=== PATIENT | female | born 1940 | race Caucasian/White ===

== ENCOUNTER 2016-06-01 11:27 | Observation (INO) | payer MEDICARE ==
[~2016-06-01] VITALS: Ht 162.6 cm; Wt 54.9 kg
[~2016-06-01 11:27] MED LIST: ALBUTEROL HFA60 DOSE IN; ALBUTEROL SUL0.083 % IN; ALPRAZOLAM0.5 MG; ATORVASTATIN CA20 MG PO; CEFTIN500 MG PO; GLUCOPHAGE500 MG PO; LEVOFLOXACIN500 MG PO; LISINOPRIL10 MG PO; METFORMIN HCL500 MG PO; MIRTAZAPINE15 MG PO; O2; OXAYDO5 MG; PREDNISONE20 MG PO; SPIRIVA18 MCG INH
--- NOTE | 2016-06-01 12:48 | DIAGNOSTIC IMAGING REPORT ---
PROCEDURE: XR CHEST 1 VIEW INDICATION: COPD TECHNIQUE: Portable AP view 11:59 a.m. COMPARISON: Chest 05/26/2016 and 04/28/2016 FINDINGS: Pulmonary hyperexpansion with basilar parenchymal scarring. Lungs are otherwise clear. Heart and mediastinum are normal. Thorax is normal. IMPRESSION: 1. Chronic obstructive pulmonary disease. 2. Otherwise negative chest.
--- NOTE | 2016-06-01 14:17 | ED ORDER SUMMARY ---
..... Patient: HONORIO ALBRIGHT OrderSheet [facility] VisitID: [id number] [place] [address] 75y, F Registration Date/Time: 06/01/2016 ORDER SHEET Weight: 56.2 kg (stated) Allergies: Codeine, PCN, Sulfa Drugs GENERAL ORDERS: Chest 1V Urgent (11:44 06/01/2016 Carrol Jaeger) (Ack 11:47 Esthela ER Tech1) (12:50 IJcasimiro ER Tech1) Oxygen (titrate to sats > 90%) (NC) (11:44 06/01/2016 Carrol Jaeger) (11:47 LWhalen R.N.) (Ack 11:47 Esthela ER Tech1) Commercial Escrow Officer (Continuous) (Respiratory Distress) (11:45 06/01/2016 Carrol Jaeger) (11:47 LWhalen R.N.) (Ack 11:47 Esthela ER Tech1) RSV Rapid Screen (Nasal Pharyngeal) (mucus) Urgent (11:45 06/01/2016 Carorl Jaeger) (Ack 11:47 Esthela ER Tech1) (12:05 LWhalen R.N.) Rapid Influenza Screen (Nasal Pharyngeal) (mucus) Urgent (11:45 06/01/2016 Carrol Jaeger) (Ack 11:47 Esthela ER Tech1) (12:05 LWhalen R.N.) CBC w Diff Urgent (11:45 06/01/2016 Carrol Jaeger) (Ack 11:47 Esthela ER Tech1) (11:57 Elizabeth R.N.) CMP Urgent (11:45 06/01/2016 Carrol Jaeger) (Ack 11:47 Esthela ER Tech1) (11:57 Elizabeth R.N.) UA-Culture if indicated Urgent (11:45 06/01/2016 Carrol Jaeger) (Ack 11:47 Esthela ER Tech1) Lactate, Serum Urgent (11:45 06/01/2016 Carrol Jaeger) (Ack 11:47 Esthela ER Tech1) (12:05 LWhalen R.N.) PCT (Procalcitonin) Urgent (11:45 06/01/2016 Carrol Jaeger) (Ack 11:47 IJurca ER Tech1) Pulse oximeter (11:45 06/01/2016 Carrol Jaeger) (11:47 LWmilagros R.N.) (Ack 11:47 IJurca ER Tech1) MEDICATION ORDERS: DuoNeb Neb Tx 1 unit dose (NOW) (11:46 06/01/2016 Carrol Jaeger) (12:11 JZiglar) Albuterol Neb Tx 3 unit doses (now over 1 hour) (12:32 06/01/2016 Carrol Jaeger) (12:46 JZiglar) Albuterol Neb Tx 2 unit doses (NOW) (13:30 06/01/2016 Carrol Jaeger) (13:50 JZiglar) IV FLUIDS: IV Saline Lock (11:45 06/01/2016 Carrol Jaeger) (Ack 11:57 Elizabeth Mustafa) (11:57 Elizabeth Mustafa) Solu-MEDROL IV 125 mg (NOW) (11:45 06/01/2016 Carrol Jaeger) (12:02 LWmilagros R.N.) Magnesium Sulfate IV 2 gm/50mL (given over 15 minutes) (14:16 06/01/2016 Carrol Jaeger) (14:22 LWmilagros R.N.) ORDER SHEET NOTES: [Electronically signed by Aidee Ramos R.N. (17:04 06/01/2016)] [Electronically signed by Kody Barth Dr. (23:35 06/06/2016)] [Electronically locked/signed by Aidee Ramos R.N. (17:04 06/01/2016)]
--- NOTE | 2016-06-01 14:17 | ED NURSING NOTES ---
Clinical Report - Nurses [facility] [address] [place] [address] 06/01/2016 11:28 [id number] Triage time 11:39 Jun 01 2016. Acuity: LEVEL 3. Chief Complaint: SHORTNESS OF BREATH, DIFFICULTY BREATHING and WHEEZING. CHRISS COMA SCORE: [place] Coma Scale: 15- eyes open spontaneously (4); best verbal response- oriented x 4 (5); best motor response- obeys commands (6). --11:45 Aidee Ramos R.N. 11:39 06/01/16. BP: 199/76. HR: 120. RR: 26. O2 saturation: 91%. Temp: 98.0 F. --11:45 Aidee Ramos R.N. 11:39 06/01/16. Pain level now 0/10. --17:03 Aidee Ramos R.N. Weight: 56.2 kg stated. Height/Length: 64 inches Per Patient. BMI: 21.3. --11:44 Aidee Ramos R.N. Medications Albuterol Sulfate Inhalation. Alprazolam 0.5mg.-1 3 times daily. FLUoxetine HCl Oral 20 mg, daily. Lisinopril 40mg 1 daily. MetFORMIN HCl Oral 500 mg, 2x a day. Mirtazapine Oral 30 mg, at bedtime. --11:40 Aidee Ramos R.N. O2 at 3L/min. OxyCODONE HCl Oral, as needed. PredniSONE Oral 40 mg, daily. Spiriva HandiHaler Inhalation. --11:40 Aidee Ramos R.N. Allergies Codeine. PCN. Sulfa Drugs. --11:40 Aidee Ramos R.N. History Arrived by private vehicle. Historian: patient and family. Accompanied by family. Primary physician (). ( This am breathing has been worse with decrease in sat's and anxiety.). She has had a cough and wheezing. Treatment FINANCIAL REPORTING ANALYST: (inhaler and ativan). PAST MEDICAL HX: Chronic obstructive pulmonary disease. She is on home oxygen. Immunizations: up-to-date. SOCIAL HX: Smoker- current status unknown. No alcohol use or drug use. No infectious disease exposure. SELF HARM ASSESSMENT: A self harm assessment was performed. The patient answered "no" to the question "Have you recently felt down, depressed, or hopeless?" and "Do you have thoughts of harming or killing yourself?". FALL RISK ASSESSMENT: Fall risk assessment completed. No fall risk identified. NUTRITIONAL RISK ASSESSMENT: The nutritional risk assessment revealed no deficiencies. FUNCTIONAL ASSESSMENT: Functional assessment: no impairments noted. LEARNING NEEDS ASSESSMENT: The learning needs assessment revealed no barriers. ABUSE ASSESSMENT: Abuse assessment: (yes). SKIN INTEGRITY ASSESSMENT: Skin integrity risk assessment completed. No skin integrity risk identified. --11:45 Aidee Ramos R.N. PROBLEMS: Emphysema. Anxiety Reaction. COPD - Chronic Obstructive Pulmonary Disease. Abscess. Abdominal Pain. Diarrhea. Dizziness. Hypertension. Tetanus Status. Immunizations. Subclavian steal syndrome. Diabetes Mellitus. --11:41 Aidee Ramos R.N. Constipation [Resolved]. --11:41 Aidee Ramos R.N. ADDITIONAL SURGERIES: Cholecystectomy. Hysterectomy. Tonsillectomy. --11:41 Aidee Ramos R.N. Interventions ID and allergy band on patient. --11:45 Aidee Ramos R.N. PHYSICAL ASSESSMENT To room via wheelchair. GENERAL / NEURO / PSYCH: Alert. Oriented X 4. Appears anxious and in distress. HEENT: Mucous membranes are pink. RESPIRATORY: Severe respiratory distress. The patient can speak a few words at a time. Accessory muscle use. Chest wall tenderness. Wheezing present. Rhonchi present. CVS: Normal sinus rhythm noted. Capillary refill less than 2 seconds. GI / : Abdomen soft and nontender. Bowel sounds within normal limits. ( Last BM last night). SKIN: Skin is warm and dry. Normal skin turgor. --11:45 Aidee Ramos R.N. NURSING PROGRESS NOTES The initial plan of care for this patient includes an assessment with efforts to address the patient's anxiety; appropriate ambient lighting and comfortable environmental temperature; impairment of the respiratory system. Oxygen administered by nasal cannula at 3 liters. telemetry monitor, pulse oximeter and NIBP monitor placed on patient. Patient gowned. Head of bed elevated 60 degrees. Reassurance given. Call light placed in reach. Side rails up x 1. Bed placed in lowest position. Brakes of bed on. --11:46 Aidee Ramos R.N. 11:57 06/01/2016 Site #1 started via IV in the left hand with an 22g angiocath, with aseptic technique and good blood return; one attempt. Blood drawn: rainbow set. Labeled in the presence of the patient and sent to the lab. Saline lock flushed with 10 mL saline. --11:57 Elaine Anderson R.N. 12:02 06/01/2016 SOLU-MEDROL (MethylPREDNISolone Sodium Succ) IVP 125 mg given over 2 minute(s) via site #1. Allergies verified and confirmed 5 rights. IV patency established. IV site checked: no pain, redness, or swelling. IV flushed thoroughly pre- and post-medication administration. --12:02 Aidee Ramos R.N. Patient ID band checked for patient name and birthdate: patient confirmed. RSV nasal swab obtained by RN via nasal swab. Patient ID band checked for patient name and birthdate: patient confirmed. Flu swab obtained by RN via nasal swab. Labeled in the presence of the patient. --12:09 Aidee Ramos R.N. 12:11 06/01/2016 Duoneb (Ipratropium-Albuterol) Neb TX Nebulizer 1 unit dose given. Given by the respiratory therapist. Allergies verified and confirmed 5 rights. Jose Eduardo Sorto --12:11 Jose Eduardo Sorto ( Pt assisted to commode to urinate. Urine will be collected for analysis). --12:36 Yousif Maria 12:46 06/01/2016 Albuterol Neb TX Nebulizer 2 unit dose given. Given by the respiratory therapist. Allergies verified and confirmed 5 rights. Jose Eduardo Sorto --12:46 Jose Eduardo Sorto 12:40. Checked patient name and birthdate: patient confirmed. Patient verbalized understanding urine collected with return of yellow-colored clear urine; odor is normal; sample sent to lab for urinalysis. Specimen labeled in the presence of the patient. --12:58 Yousif Maria 13:50 06/01/2016 Albuterol Neb TX Nebulizer 2 unit dose given. Given by the respiratory therapist. Allergies verified and confirmed 5 rights. Jose Eduardo Sorto --13:50 Jose Eduardo Sorto 14:02 06/01/16. BP: 138/56. HR: 109. RR: 30. O2 saturation: 96%. Additional comments: pt receiving neb tx at this time. --14:02 Terri Nava R.N. 14:22 06/01/2016 Magnesium Sulfate (Magnesium Sulfate in D5W) IVP 2 gm given over 15 minute(s) via site #1. Allergies verified and confirmed 5 rights. IV patency established. IV site checked: no pain, redness, or swelling. IV flushed thoroughly pre- and post-medication administration. --14:22 Aidee Ramos R.N. 14:33 06/01/16. BP: 94/62. HR: 107. RR: 26. O2 saturation: 92%. --14:34 Aidee Ramos R.N. 14:38 06/01/16. BP: 96/55. HR: 104. RR: 25. O2 saturation: 91%. --14:38 Aidee Ramos R.N. 14:39 06/01/16. BP: 105/39. HR: 102. RR: 18. O2 saturation: 91%. --14:39 Aidee Ramos R.N. 14:42 06/01/16. BP: 92/37. HR: 102. RR: 30. O2 saturation: 91%. --14:42 Aidee Ramos R.N. 14:47 06/01/16. BP: 106/52. HR: 100. RR: 27. O2 saturation: 91%. --14:47 Aidee Ramos R.N. 15:25 06/01/16. The patient is resting quietly. Overall patient status is improved- she states feels better (awake, alert,). RESPIRATORY: No respiratory distress. SKIN: Skin is warm and dry. --15:25 Elaine Anderson R.N. 15:24 06/01/16. BP: 125/55. HR: 101. RR: 30. O2 saturation: 93% on nasal cannula. --15:25 Elaine Anderson R.N. 16:18 06/01/16. BP: 127/51. HR: 108. RR: 18. O2 saturation: 92%. Temp: 98.2 F. Pain level now 0/10. --16:20 Aidee Ramos R.N. ( Patient ate meal no complaints.). --16:20 Aidee Ramos R.N. ( Report called to RN in ACU will get a return call when able to receive report.). --16:21 Aidee Ramos R.N. DISPOSITION / DISCHARGE Admitted to Acute Care. ( Report given to AC RN. Transportation called.). --16:39 Aidee Ramos R.N. 16:18 06/01/16. BP: 127/51. HR: 108. RR: 18. O2 saturation: 92%. Temp: 98.2 F. Pain level now 0/10. --16:39 Aidee Ramos R.N. Departure time: 17:Jun 01 2016. --17:03 Aidee Ramos R.N. Locked/Released at 06/01/2016 17:04 by Aidee Ramos R.N.
--- NOTE | 2016-06-01 14:17 | ED CLINICAL REPORT ---
Clinical Report - Physicians/Mid Levels [facility] [address] [place] [address] 06/01/2016 11:28 Patient: HONORIO ALBRIGHT Arrived- By private vehicle. Historian- patient. HISTORY OF PRESENT ILLNESS Chief Complaint: DYSPNEA and WHEEZING. This started past few days and is still present (worsening). It was gradual in onset and has been constant but is not gone now. The dyspnea is described as moderate and is worsened by exertion and is improved by rest. The patient has had sputum production, a cough, wheezing and anxiety. No foot swelling. Similar symptoms previously: Many times. Recent medical care: Not recently seen/assessed. REVIEW OF SYSTEMS No abdominal pain, black stools or bloody stools. All systems otherwise negative, except as recorded above. PAST HISTORY See nurses notes. Denies the following risk factors for DVT/PE - history of DVT and pulmonary embolism, recent surgery, recent MD and congestive heart failure. Denies the following risk factors for DVT/PE - cancer, clotting disorder, estrogens, obesity and immobility. Denies the following risk factors for DVT/PE - advanced in age and vena cava filter. Medications: O2 at 3L/min. OxyCODONE HCl Oral, as needed. PredniSONE Oral 40 mg, daily. Spiriva HandiHaler Inhalation. Albuterol Sulfate Inhalation. Alprazolam 0.5mg.-1 3 times daily. FLUoxetine HCl Oral 20 mg, daily. Lisinopril 40mg 1 daily. MetFORMIN HCl Oral 500 mg, 2x a day. Mirtazapine Oral 30 mg, at bedtime. Allergies: Codeine. PCN. Sulfa Drugs. SOCIAL HISTORY No alcohol use or drug use. No recent travel. Is a local resident. ADDITIONAL NOTES The nursing notes have been reviewed. PHYSICAL EXAM Vital Signs: 06/01/2016 11:39 BP: 199/76. HR: 120. RR: 26. O2 saturation: 91%. Temp: 98.0 F. Hypertensive. Oxygen saturation normal. Appearance: Alert. Patient in mild distress. Eyes: Pupils equal, round and reactive to light. Eyes normal inspection. ENT: Ears normal. Nose normal. Pharynx normal. Uvula midline. Neck: Normal inspection. No jugular venous distention. Neck supple. CVS: Normal heart rate and rhythm. Heart sounds normal. Pulses normal. Respiratory: Moderate respiratory distress with accessory muscle use, retractions, anxiety, tachypnea and hyperventilation. Wheezing present. No stridor, rales, chest wall tenderness or rhonchi. Abdomen: Soft and nontender. No organomegaly. Back: Normal inspection. Skin: Skin warm and dry. Normal skin color. No rash. Normal skin turgor. Extremities: Extremities exhibit normal ROM. No lower extremity edema. Neuro: Oriented X 3. No motor deficit. No sensory deficit. LABS, X-RAYS, AND EKG Chest X-ray: (PROCEDURE: XR CHEST 1 VIEW INDICATION: COPD TECHNIQUE: Portable AP view 11:59 a.m. COMPARISON: Chest 05/26/2016 and 04/28/2016 FINDINGS: Pulmonary hyperexpansion with basilar parenchymal scarring. Lungs are otherwise clear. Heart and mediastinum are normal. Thorax is normal. IMPRESSION: 1. Chronic obstructive pulmonary disease. 2. Otherwise negative chest.). Views: PA. The X-rays were independently viewed by me and interpreted by the radiologist. The X-rays were discussed with the radiologist (via pacs). Laboratory Tests: CBC w Diff: (YAMILETH: 06/04/2016 07:10) ( MsgRcvd 06/04/2016 08:02) Final results Test Result Flag Units (Reference) WHITE BLOOD COUNT 13.8 H K/uL (4.5-11.5) RED BLOOD COUNT 4.00 M/uL (4.00-5.20) HEMOGLOBIN 11.1 L gm/dL (12.0-16.0) HEMATOCRIT 34.3 L % (36.0-46.0) MEAN CELL VOLUME 86 fL (80-100) MEAN CORPUSCULAR HGB 28 pg (26-34) MEAN CORPUSCULAR HGB CONC 32 g/dL (31-37) RED CELL DISTRIBUTION WIDTH 14.9 H % (11.6-14.8) PLATELET COUNT 191 K/uL (150-400) NEUTROPHIL % 90.1 H % (50-75) LYMPH % 8.1 L % (25-40) MONO % 1.7 L % (3-14) EOSINOPHIL % 0.1 % (0-4) BASOPHIL % 0 % (0-2) CMP: (YAMILETH: 06/04/2016 07:10) [facility] Final results Test Result Flag Units (Reference) GLUCOSE 235 H mg/dL (70-110) BUN 35 H mg/dL (7-18) CREATININE 1.0 mg/dL (0.6-1.3) Estimated GFR 57.45 mL/min Estimated GFR- >60 mL/min Note: Persistent reduction over 3 months in eGFR<60 mL/min/1.73 m2 defines CKD. Patients with eGFR values>=60 mL/min/1.73 m2 may also have CKD if evidence ofpersistent proteinuria. Additional information may be foundat www.kidney.org. SODIUM 140 mmol/L (136-145) POTASSIUM 5.8 H mmol/L (3.5-5.1) CHLORIDE 106 mmol/L (98-107) CARBON DIOXIDE 30 mmol/L (21-32) CALCIUM 8.0 L mg/dL (8.5-10.1) TOTAL PROTEIN 5.4 L g/dL (6.4-8.2) ALBUMIN 2.8 L g/dL (3.3-5.0) BILIRUBIN, TOTAL 0.5 mg/dL (0.0-1.0) ALKALINE PHOSPHATASE 81 U/L (46-116) AST (SGOT) 16 U/L (15-37) ALT (SGPT) 59 U/L (12-78) MAGNESIUM 1.5 L mg/dL (1.8-2.4) CBC w Diff: (YAMILETH: 06/02/2016 04:36) ( Mscvd 06/02/2016 05:10) Final results Test Result Flag Units (Reference) WHITE BLOOD COUNT 14.9 H K/uL (4.5-11.5) RED BLOOD COUNT 4.02 M/uL (4.00-5.20) HEMOGLOBIN 11.3 L gm/dL (12.0-16.0) HEMATOCRIT 34.2 L % (36.0-46.0) MEAN CELL VOLUME 85 fL (80-100) MEAN CORPUSCULAR HGB 28 pg (26-34) MEAN CORPUSCULAR HGB CONC 33 g/dL (31-37) RED CELL DISTRIBUTION WIDTH 14.9 H % (11.6-14.8) PLATELET COUNT 214 K/uL (150-400) NEUTROPHIL % 80.0 H % (50-75) LYMPH % 13.0 L % (25-40) MONO % 6.7 % (3-14) EOSINOPHIL % 0 % (0-4) BASOPHIL % 0.3 % (0-2) BMP: (YAMILETH: 06/02/2016 04:36) ( MsgRcvd 06/02/2016 05:21) Final results Test Result Flag Units (Reference) GLUCOSE 118 H mg/dL (70-110) CREATININE 0.8 mg/dL (0.6-1.3) Estimated GFR >60 mL/min Estimated GFR- >60 mL/min Note: Persistent reduction over 3 months in eGFR<60 mL/min/1.73 m2 defines CKD. Patients with eGFR values>=60 mL/min/1.73 m2 may also have CKD if evidence ofpersistent proteinuria. Additional information may be foundat www.kidney.org. SODIUM 146 H mmol/L (136-145) POTASSIUM 4.7 mmol/L (3.5-5.1) CHLORIDE 109 H mmol/L (98-107) CARBON DIOXIDE 33 H mmol/L (21-32) CALCIUM 7.8 L mg/dL (8.5-10.1) UA-Culture if indicated: (YAMILETH: 06/01/2016 12:42) ( MsgRcvd 06/01/2016 13:10) Final results Test Result Flag Units (Reference) URINE COLOR YELLOW URINE APPEARANCE CLEAR URINE GLUCOSE NEGATIVE (NEGATIVE) URINE BILIRUBIN NEGATIVE (NEGATIVE) URINE KETONE NEGATIVE (NEGATIVE) URINE SPECIFIC GRAVITY 1.010 (1.010-1.030) URINE PH 6.0 (5.0-8.0) URINE PROTEIN NEGATIVE (NEGATIVE) URINE UROBILINOGEN 0.2 EU/dL (0.2-1.0) URINE NITRITE NEGATIVE (NEGATIVE) URINE BLOOD TRACE-LYSED (NEGATIVE) URINE LEUK ESTERASE NEGATIVE (NEGATIVE) URINE RBC NONE SEEN rbc/hpf (0-1) URINE WBC NONE SEEN wbc/hpf (0-1) URINE EPITHELIAL CELLS 1-3 EPI/hpf (0-5) URINE BACTERIA NONE SEEN (NONE SEEN) URINE COMMENT CULT NOT INDICATED 2+ YEASTURINE CULTURES ARE SET-UP BASED ON THE FOLLOWING CRITERIA:POSITIVE NITRITEPOSITIVE LEUKOCYTE ESTERASEGREATER THAN 10 WHITE BLOOD CELLSMODERATE (2+) OR GREATER BACTERIA CBC w Diff: (YAMILETH: 06/01/2016 11:55) ( [facility] 06/01/2016 12:12) Final results Test Result Flag Units (Reference) WHITE BLOOD COUNT 18.6 H K/uL (4.5-11.5) RED BLOOD COUNT 4.65 M/uL (4.00-5.20) HEMOGLOBIN 12.7 gm/dL (12.0-16.0) HEMATOCRIT 39.9 % (36.0-46.0) MEAN CELL VOLUME 86 fL (80-100) MEAN CORPUSCULAR HGB 27 pg (26-34) MEAN CORPUSCULAR HGB CONC 32 g/dL (31-37) RED CELL DISTRIBUTION WIDTH 14.8 % (11.6-14.8) PLATELET COUNT 270 K/uL (150-400) NEUTROPHIL % 73.4 % (50-75) LYMPH % 18.6 L % (25-40) MONO % 6.5 % (3-14) EOSINOPHIL % 1.1 % (0-4) BASOPHIL % 0.4 % (0-2) Lactate, Serum: (YAMILETH: 06/01/2016 12:00) ( [facility] 06/01/2016 13:02) Final results Test Result Flag Units (Reference) LACTIC ACID 1.1 mmol/L (0.4-2.0) [id number]: (YAMILETH: 06/01/2016 11:55) ( [facility] 06/01/2016 13:16) Final results Test Result Flag Units (Reference) PROCALCITONIN <0.5 ng/mL (0-0.5) PCT Concentration: Interpretation : Risk/option for action PCT <=0.5 ng/mL : Systemic : Low risk forinfection(sepsis): progression to severeis not likely. : systemic infection.Local bacterial : CAUTION-PCT levelsinfection is : below 0.5 ng/mL do notpossible. : exclude an infection,because localizedinfections (withoutsystemic signs) may beassociated with suchlow levels. If PCT ismeasured very earlyafter a bacterialchallenge (usually <6hours), these valuesmay still be low. Inthis case PCT shouldbe re-assessed 6-24hours later. PCT >0.5 and : Systemic infection: Moderate risk for<= 2 ng/mL : (sepsis) is : progression to severepossible, but : systemic infection.other conditions : The patient should beare known to : closely monitoredelevate PCT. : both clinically andby re-assessing PCTwithin 6-24 hours. PCT > 2 ng/mL : Systemic infection: High risk for(sepsis) is likely: progression to severeunless other : systemic infection.causes are known. : PCT >= 10 ng/mL : Important systemic: High likelihood ofinflammatory : severe sepsis orresponse, almost : septic shock.exclusively due to:severe bacterial :sepsis or septic :shock. : CMP: (YAMILETH: 06/01/2016 11:55) ( MsgRcvd 06/01/2016 12:39) Final results Test Result Flag Units (Reference) GLUCOSE 124 H mg/dL (70-110) BUN 23 H mg/dL (7-18) CREATININE 0.8 mg/dL (0.6-1.3) Estimated GFR >60 mL/min Estimated GFR- >60 mL/min Note: Persistent reduction over 3 months in eGFR<60 mL/min/1.73 m2 defines CKD. Patients with eGFR values>=60 mL/min/1.73 m2 may also have CKD if evidence ofpersistent proteinuria. Additional information may be foundat www.kidney.org. SODIUM 144 mmol/L (136-145) POTASSIUM 4.3 mmol/L (3.5-5.1) CHLORIDE 107 mmol/L (98-107) CARBON DIOXIDE 31 mmol/L (21-32) CALCIUM 8.4 L mg/dL (8.5-10.1) TOTAL PROTEIN 5.8 L g/dL (6.4-8.2) ALBUMIN 3.1 L g/dL (3.3-5.0) BILIRUBIN, TOTAL 0.5 mg/dL (0.0-1.0) ALKALINE PHOSPHATASE 72 U/L (46-116) AST (SGOT) 38 H U/L (15-37) ALT (SGPT) 57 U/L (12-78) Culture, Sputum: (YAMILETH: 06/01/2016 06:51) ( MsgRcvd 06/05/2016 11:51) IP SPECIMEN DESCRIPTION: sputum Test Result Flag Units (Reference) GRAM STAIN, RESPIRATORY DATE: 06/03/16 EPITHELIAL CELLS: 1+ GRAM POSITIVE COCCI: 1+ WHITE BLOOD CELLS: NONE CULTURE, RESPIRATORY DATE: 06/05/16 NORMAL UPPER RESP. AZALIA: MODERATE GROWTH: NORMAL UPPER RESPIRATORY AZALIA PRELIM REPORT: PRELIMINARY REPORT #2 RSV Rapid Screen: (YAMILETH: 06/01/2016 12:00) ( MsgRcvd 06/01/2016 12:38) Final results SPECIMEN DESCRIPTION: MUCUS Test Result Flag Units (Reference) RSV RAPID TEST DATE: 06/01/16 NEGATIVE SCREEN: NEGATIVE If Rapid RSV test is Negative but RSV is still suspected, a confirmatory RSV DFA can be requested. RAPID INFLUENZA SCREEN DATE: 06/01/16 INFLUENZA A: NEGATIVE SCREEN FOR INFLUENZA A INFLUENZA B: NEGATIVE SCREEN FOR INFLUENZA B . Pulse Oximetry: 06/01/2016 16:18 O2 saturation: 92%. Interpretation: hypoxemia. PROGRESS AND PROCEDURES Course of Care: The patient is a pleasant 75 yo female with hx of COPD presenting for evaluation of wheezing and shortness of breath. Patient with COPD symptoms. Will evaluate for PE if patient does not improve with breathing treatments at this time. patient with low risk on well's criteria for PE. patient agreeable to treatment and plan. While in the emergency department patient's work up was significant for wheezing that was difficult to control. She did get better after each breathing treatment. Had discussion with patient about admitting to hospital. Patient was agreeable. Magnesium ordered and patient reported significant relief with treatment. Patient does not need ICU level of care at this time. Patient to be admitted to tele. Had discussion with hospitalist about abx and admit. Will decide if abx are needed at a later time. patient with improved symptoms. Do not feel abx are needed at this time. She is non-toxic and in no acute distress. Discussed with patient work up, diagnosis, and plan of care. All questions answered. Patient expressed understanding of these instructions and was agreeable to them. Ordered placed. patient admitted without incident. Critical care performed (60 minutes). Time is exclusive of separately billable procedures. Time includes: direct patient care, patient reassessment, coordination of patient care, interpretation of data (laboratory data, pulse oximetry and chest xrays), review of patient's medical records, medical consultation and documentation of patient care. Disposition: Observation in Acute Care. (Electronically signed by Kody Barth Dr. 06/06/2016 23:35)
--- NOTE | 2016-06-01 14:17 | ED ORDER SUMMARY ---
..... Patient: HONORIO ALBRIGHT OrderSheet [facility] VisitID: [id number] [place] [address] 75y, F Registration Date/Time: 06/01/2016 ORDER SHEET Weight: 56.2 kg (stated) Allergies: Codeine, PCN, Sulfa Drugs GENERAL ORDERS: Chest 1V Urgent (11:44 06/01/2016 Carrol Jaeger) (Ack 11:47 Esthela ER Tech1) (12:50 IJcasimiro ER Tech1) Oxygen (titrate to sats > 90%) (NC) (11:44 06/01/2016 Carrol Jaeger) (11:47 LWhalen R.N.) (Ack 11:47 Esthela ER Tech1) Ob/Gyn Doctor (Continuous) (Respiratory Distress) (11:45 06/01/2016 Carrol Jaeger) (11:47 LWhalen R.N.) (Ack 11:47 Esthela ER Tech1) RSV Rapid Screen (Nasal Pharyngeal) (mucus) Urgent (11:45 06/01/2016 Carrol Jaeger) (Ack 11:47 Esthela ER Tech1) (12:05 LWhalen R.N.) Rapid Influenza Screen (Nasal Pharyngeal) (mucus) Urgent (11:45 06/01/2016 Carrol Jaeger) (Ack 11:47 Esthela ER Tech1) (12:05 LWhalen R.N.) CBC w Diff Urgent (11:45 06/01/2016 Carrol Jaeger) (Ack 11:47 Esthela ER Tech1) (11:57 Elizabeth R.N.) CMP Urgent (11:45 06/01/2016 Carrol Jaeger) (Ack 11:47 Esthela ER Tech1) (11:57 Elizabeth R.N.) UA-Culture if indicated Urgent (11:45 06/01/2016 Carrol Jaeger) (Ack 11:47 Esthela ER Tech1) Lactate, Serum Urgent (11:45 06/01/2016 Carrol Jaeger) (Ack 11:47 Esthela ER Tech1) (12:05 LWhalen R.N.) PCT (Procalcitonin) Urgent (11:45 06/01/2016 Carrol Jaeger) (Ack 11:47 IJurca ER Tech1) Pulse oximeter (11:45 06/01/2016 Carrol Jaeger) (11:47 LWmilagros R.N.) (Ack 11:47 IJurca ER Tech1) MEDICATION ORDERS: DuoNeb Neb Tx 1 unit dose (NOW) (11:46 06/01/2016 Carrol Jaeger) (12:11 JZiglar) Albuterol Neb Tx 3 unit doses (now over 1 hour) (12:32 06/01/2016 Carrol Jaeger) (12:46 JZiglar) Albuterol Neb Tx 2 unit doses (NOW) (13:30 06/01/2016 Carrol Jaeger) (13:50 JZiglar) IV FLUIDS: IV Saline Lock (11:45 06/01/2016 Carrol Jaeger) (Ack 11:57 Elizabeth Mustafa) (11:57 Elizabeth Mustafa) Solu-MEDROL IV 125 mg (NOW) (11:45 06/01/2016 Carrol Jaeger) (12:02 LWmilagros R.N.) Magnesium Sulfate IV 2 gm/50mL (given over 15 minutes) (14:16 06/01/2016 Carrol Jaeger) (14:22 LWmilagros R.N.) ORDER SHEET NOTES: [Electronically signed by Aidee Ramos R.N. (17:04 06/01/2016)] [Electronically signed by Kody Barth Dr. (23:35 06/06/2016)] [Electronically locked/signed by Aidee Ramos R.N. (17:04 06/01/2016)]
[2016-06-01 17:12] VITALS: BP 135/55
--- NOTE | 2016-06-01 22:38 | HISTORY AND PHYSICAL ---
ADMITTED: 06/01/2016 PRIMARY CARE PHYSICIAN: Meño Song MD CHIEF COMPLAINT: 1. Shortness of breath HISTORY OF PRESENT ILLNESS: This is a 75-year-old female with difficult to control COPD, complicated by noncompliance, presenting to the hospital for complaints of shortness of breath. The patient was admitted initially to the hospital on 05/23/2016 for a COPD exacerbation and monitored overnight. She was deemed to be doing better and was discharged to home on 05/24/2016 on oxygen. The patient returned on 05/26/2016 with worsening shortness of breath and a CT scan of her abdomen did show that she had a right lower lobe pneumonia. She was admitted to the hospital and monitored for 4 days. On 05/30/2016 she was deemed to be fairly stable and doing significantly better and was again discharged to home. Earlier today on 06/01/2016, she states that she had an anxiety attack and had a sudden onset of rhinorrhea, which resulted in a severe coughing spell and her oxygen saturations were staying below 90 and, therefore, she called the ambulance and was again transported to the emergency department. The emergency department did confirm that on her home level of oxygen, she was still staying at around 88 percentile and, therefore, they increased her oxygen and gave her [id number] nebulizers and Solu-Medrol 125 mg IV. She was improved during her emergency department stay, but due to complex situation they requested admission for observation overnight. MEDICAL/SURGICAL HISTORY: History: COPD, anxiety, hypertension, hypoxia, type 2 diabetes, perirectal abscess. Past surgical history: The record shows heart surgery 2002; however, she and her son deny this. Apparently, she did have medical problem at that time that involved heart palpitations and she was diagnosed with a heart murmur, but she denies surgery. She did have uterine surgery in 1987 and a cholecystectomy in 1992. MEDICATIONS: As of 05/30/2016 when she was discharged from the hospital include: 1. Atorvastatin 40 mg p.o. daily. 2. Metformin 1000 mg p.o. b.i.d. 3. Prednisone 20 mg p.o. daily. 4. Cefuroxime 500 mg p.o. b.i.d. 5. Albuterol MDI 2 puffs inhaled q.4 hours p.r.n. wheezing. 6. Alprazolam 0.5 mg p.o. t.i.d. p.r.n. anxiety. 7. Lisinopril 40 mg p.o. daily. 8. Mirtazapine 30 mg p.o. at bedtime. 9. Oxycodone 5 mg p.o. daily p.r.n. pain. 10. Spiriva 1 capsule inhaled daily. ALLERGIES: 1. PENICILLIN. 2. CODEINE. 3. VALIUM. 4. SULFA. 5. TRIMETHOPRIM SULFATE. SOCIAL HISTORY: The patient is . She is Pentecostal, but is not involved in a shinto. She is retired and living in a senior apartment. Her son lives nearby. FAMILY HISTORY: REVIEW OF SYSTEMS: A full 12-point review of systems was done and it was negative except as per HPI, and chronic pain. PHYSICAL EXAMINATION: VITAL SIGNS: Blood pressure is 135/55, pulse is 102, respiratory rate of 20, O2 saturation 95% on 4 L, T-max is 37.2 degrees Celsius. GENERAL: This is a well-appearing female lying in bed in no apparent distress. HEENT: Head is atraumatic, normocephalic. Trachea is midline. NECK: There is no JVD. HEART: S1, S2, regular rate and rhythm. No S3, S4, murmurs, gallops, or rubs. LUNGS: Coarse diffusely without significant wheezing and with okay airflow. She does have very mild increased work of breathing. ABDOMEN: Soft, nontender, nondistended without hepatosplenomegaly or masses. Bowel sounds active. EXTREMITIES: There is no peripheral edema. LAB/IMAGING: Laboratories: White blood cell count of 18.6, hemoglobin of 12.7, hematocrit of 39.9, platelets of 270,000. Sodium of 144, potassium 4.3, chloride of 107, bicarb of 31, BUN of 23, creatinine of 0.8, glucose of 124, calcium of 8.4. Total protein of 5.8, albumin of 3.1, total protein of 0.5, alk phos is 72, AST of 38, ALT of 57. Procalcitonin of less than 0.5. Lactic acid is 1.1. UA is negative. RSV is negative. Influenza is negative. Chest x-ray: Shows hyperinflation, lungs are otherwise clear. IMPRESSION: 1. This is a 75-year-old female with difficult to control chronic obstructive pulmonary disease with acute exacerbation and likely still with the pneumonia diagnosed on 05/26/2016, although improving. 2. Hypoxia. 3. Hypertension. 4. Type 2 diabetes. 5. Anxiety. PLAN: 1. Fluids, electrolytes, nutrition: The patient will be on a consistent carbohydrate, cardiac diet. Monitor closely. 2. Cardiac: Stable. We will continue her home antihypertensive medications. 3. Pulmonary: The patient has [id number] obstructive pulmonary disease exacerbation. We will increase her steroids, do DuoNebs four times a day. The patient states that she thinks that her acute worsening today was secondary to her rhinorrhea; however, she has had no more rhinorrhea since presenting to the hospital. I wonder if this patient would be able to better use nebulizers at home and if we may want to consider using a nebulizer machine instead of her inhalers as I wonder if they would be more effective due to ease of use. 4. Diabetes. Will likely be not well-controlled due to her steroids. We will monitor closely and do low-dose insulin sliding scale as appropriate. 5. Anxiety. We will continue her home medications. 6. Prophylaxis. The patient is eating and we will do sequential compression devices for deep venous thrombosis prophylaxis. 7. Code status: Code status was rediscussed with this patient today and she would like to be a DO NOT RESUSCITATE.
[2016-06-01 22:43] VITALS: BP 150/87
[2016-06-02] VITALS (7 sets, daily range): BP systolic 122–154; BP diastolic 39–71
--- NOTE | 2016-06-02 08:12 | Progress Note ---
Subjective General 75yo female with COPD readmitted due to exacerbation which occurred with a severe attack of rhinorrhea. Admitted with low O2 saturation. Feels better this AM. Denies CP/palp/sob this AM. Still coughing some. No further rhinorrhea. Physical Exam Vital Signs / I&Os Vital Signs Date Time Temp Pulse Resp B/P Pulse O2 O2 Flow FiO2 Ox Delivery Rate 06/02 0653 98.1 81 22 149/53 93 Nasal 4.0 Cannula 06/02 0255 98.8 98 18 134/60 94 Nasal 4.0 Cannula 06/02 0008 Nasal 4.0 Cannula 06/01 2243 98.8 100 20 150/87 93 Nasal 4.0 Cannula 06/01 2200 4.0 06/01 1850 Nasal 4.0 Cannula 06/01 1712 99.0 102 20 135/55 95 Nasal 4.0 Cannula 06/01 1315 3.0 06/01 1250 3.0 06/01 1240 3.0 06/01 1209 3.0 I&O 06/01 0800 06/01 1600 06/02 0000 Intake Total 0 Output Total 100 Balance -100 General Appearance Alert, Oriented X3, Cooperative, No acute distress Lungs Distant quiet breath sounds. Cardiovascular Regular rate and rhythm Abdomen Normal bowel sounds, Soft, No tenderness Extremities No edema Skin No Rashes LAB Results Laboratory Tests 06/01 06/01 06/01 06/01 1155 1155 1200 1242 Chemistry Plasma Sodium (136 - 145 mmol/L) 144 Plasma Potassium (3.5 - 5.1 mmol/L) 4.3 Plasma Chloride (98 - 107 mmol/L) 107 CO2 (Enzymatic) (21 - 32 mmol/L) 31 BUN (7 - 18 mg/dL) 23 Creatinine (0.6 - 1.3 mg/dL) 0.8 Est GFR ( Amer) (mL/min) >60 Est GFR (Non-Af Amer) (mL/min) >60 Glucose (70 - 110 mg/dL) 124 Lactic Acid (0.4 - 2.0 mmol/L) 1.1 Plasma Calcium (8.5 - 10.1 mg/dL) 8.4 Total Bilirubin (0.0 - 1.0 mg/dL) 0.5 AST (15 - 37 U/L) 38 ALT (12 - 78 U/L) 57 Alkaline Phosphatase (46 - 116 U/L) 72 Total Protein (6.4 - 8.2 g/dL) 5.8 Albumin (3.3 - 5.0 g/dL) 3.1 Procalcitonin (0 - 0.5 ng/mL) <0.5 Hematology WBC (4.5 - 11.5 K/uL) 18.6 RBC (4.00 - 5.20 M/uL) 4.65 Hgb (12.0 - 16.0 gm/dL) 12.7 Hct (36.0 - 46.0 %) 39.9 MCV (80 - 100 fL) 86 MCH (26 - 34 pg) 27 RDW (11.6 - 14.8 %) 14.8 Neut % (Auto) (50 - 75 %) 73.4 Lymph % (Auto) (25 - 40 %) 18.6 Sierra % (Auto) (3 - 14 %) 6.5 Eos % (Auto) (0 - 4 %) 1.1 Baso % (Auto) (0 - 2 %) 0.4 Plt Count, EDTA (150 - 400 K/uL) 270 PUBS MCHC (31 - 37 g/dL) 32 Urines Urine Color YELLOW Urine Appearance CLEAR Urine pH (5.0 - 8.0) 6.0 Ur Specific [place] (1.010 - 1.030) 1.010 Urine Protein (NEGATIVE) NEGATIVE Urine Ketones (NEGATIVE) NEGATIVE Urine Blood (NEGATIVE) TRACE-LYSED Urine Nitrite (NEGATIVE) NEGATIVE Urine Bilirubin (NEGATIVE) NEGATIVE Urine Urobilinogen (0.2 - 1.0 EU/dL) 0.2 Ur Leukocyte Esterase (NEGATIVE) NEGATIVE Urine RBC (0 - 1 rbc/hpf) NONE SEEN Urine WBC (0 - 1 wbc/hpf) NONE SEEN Ur Epithelial Cells (0 - 5 EPI/hpf) 1-3 Urine Bacteria (NONE SEEN) NONE SEEN Urine Glucose (NEGATIVE) NEGATIVE Urine Comment CULT NOT INDICATED 06/02 0436 Chemistry Plasma Sodium (136 - 145 mmol/L) 146 Plasma Potassium (3.5 - 5.1 mmol/L) 4.7 Plasma Chloride (98 - 107 mmol/L) 109 CO2 (Enzymatic) (21 - 32 mmol/L) 33 Creatinine (0.6 - 1.3 mg/dL) 0.8 Est GFR ( Amer) (mL/min) >60 Est GFR (Non-Af Amer) (mL/min) >60 Glucose (70 - 110 mg/dL) 118 Plasma Calcium (8.5 - 10.1 mg/dL) 7.8 Hematology WBC (4.5 - 11.5 K/uL) 14.9 RBC (4.00 - 5.20 M/uL) 4.02 Hgb (12.0 - 16.0 gm/dL) 11.3 Hct (36.0 - 46.0 %) 34.2 MCV (80 - 100 fL) 85 MCH (26 - 34 pg) 28 RDW (11.6 - 14.8 %) 14.9 Neut % (Auto) (50 - 75 %) 80.0 Lymph % (Auto) (25 - 40 %) 13.0 Sierra % (Auto) (3 - 14 %) 6.7 Eos % (Auto) (0 - 4 %) 0 Baso % (Auto) (0 - 2 %) 0.3 Plt Count, EDTA (150 - 400 K/uL) 214 PUBS MCHC (31 - 37 g/dL) 33 Microbiology Date/Time Procedure - Status Source Growth 06/01 1200 Respiratory Syncytial Virus Ag Scrn - COMP NASALPHAR 06/01 1200 Influenza Screen - COMP NASALPHAR Assessment and Plan Problem List 1. Diabetes mellitus type 2 in nonobese Plan stable on meds. 2. COPD exacerbation Plan Continue current treatment and observation.
[2016-06-03 02:47] VITALS: BP 160/78
[2016-06-03 06:47] VITALS: BP 133/49
[2016-06-03 10:26] VITALS: BP 119/48
[2016-06-03 14:28] VITALS: BP 114/47
[2016-06-03 18:14] VITALS: BP 104/57
--- NOTE | 2016-06-03 19:55 | Progress Note ---
Subjective General 75yo female with COPD readmitted due to exacerbation which occurred with a severe attack of rhinorrhea. Admitted with low O2 saturation. "I had a good day today." Walking around in the hospital and tolerating it better than she has. Cough decreased. Less SOB. Agrees to plan for discharge tomorrow AM if she continues to feel well. Physical Exam Vital Signs / I&Os Vital Signs Date Time Temp Pulse Resp B/P Pulse O2 O2 Flow FiO2 Ox Delivery Rate 06/03 1916 2.5 06/03 1814 97.9 100 18 104/57 100 Nasal 2.0 Cannula 06/03 1653 2.0 06/03 1428 97.9 104 18 114/47 94 Nasal 2.0 Cannula 06/03 1313 2.0 06/03 1026 98.1 104 18 119/48 93 Nasal 2.0 Cannula 06/03 0957 Nasal 2.0 Cannula 06/03 0821 2.0 06/03 0647 97.9 82 16 133/49 92 Nasal 2.0 Cannula 06/03 0247 97.7 92 20 160/78 94 Nasal 2.0 Cannula 06/02 2345 Nasal 2.0 Cannula 06/02 2343 98.4 92 22 122/71 91 Nasal 2.0 Cannula 06/02 2124 2.0 I&O 06/02 0800 06/02 1600 06/03 0000 Intake Total 900 50 Output Total Balance 900 50 General Appearance Alert, Oriented X3, Cooperative, No acute distress Lungs Clear to auscultation, Shallow distant breath sounds. Cardiovascular Regular rate and rhythm Abdomen Soft, No tenderness Extremities No edema Assessment and Plan Problem List 1. COPD exacerbation Plan Improved. 2. Diabetes mellitus type 2 in nonobese Plan stable on current plan. Check labs in AM.
[2016-06-03 21:51] VITALS: BP 110/46
[2016-06-04 02:09] VITALS: BP 118/62
[2016-06-04 06:33] VITALS: BP 119/40
[2016-06-04 11:34] VITALS: BP 100/55
[2016-06-04] MEDS ORDERED: ALPRAZOLAM0.5 MG PO (13:28)
[2016-06-04] MEDS ORDERED: PREDNISONE20 MG PO (13:29)
[2016-06-04] MEDS ORDERED: PATIENT'S OWN MEDICA IN (13:30)
--- NOTE | 2016-06-04 13:33 | Provider's Discharge Care Plan ---
Problem, Goal, Plan Problem List 1. COPD exacerbation Goals: Improve disease control Instructions: Follow up as directed, Take meds as directed 2. Diabetes mellitus type 2 in nonobese Goals: Improve disease control Instructions: Follow up as directed, Take meds as directed 3. Bronchopneumonia Goals: Improved health/wellness Instructions: Follow up as directed, Take meds as directed 4. Anxiety Goals: Improve disease control Instructions: Follow up as directed, Take meds as directed
--- NOTE | 2016-06-04 23:57 | DISCHARGE SUMMARY ---
ADMIT DATE: 06/01/2016 DISCHARGE DATE: 06/04/2016 DISCHARGE DIAGNOSES: 1. COPD exacerbation resolving 2. Anxiety 3. HTN 4. Hypoxia, resolved. 5. DM2 BRIEF HISTORY: This is a 75-year-old female with anxiety and COPD who presented initially to the hospital on 05/23/2016 for COPD exacerbation. She was admitted and monitored overnight. She was deemed better and was discharged home on oxygen on 05/24/2016. The patient then returned to the emergency department on 05/26/2016 with worsening shortness of breath, and CT scan did show that she had a right lower lobe pneumonia. She was admitted to the hospital and monitored for 4 days. On 2015, she was deemed to be fairly stable and significantly improved. Therefore, she was again discharged home. On 06/01/2016, the patient states she was at home and had a sudden onset of coughing spell, after which her home O2 monitor was well below 90%; therefore, she called ambulance and came back to the emergency department and was readmitted. HOSPITAL COURSE: The patient was monitored in the hospital for the ensuing days and gradually improved. On the day of discharge, the patient had all but weaned completely off of her oxygen, which she needs to use with long walks and at night to sleep. On physical exam at the time of discharge, blood pressure is 100/55 to 119/40, pulse oximetry is 95% to 98% on 2 L of nasal cannula, T-max is 36.9 degrees Celsius, pulse is 76-84. This is an elderly patient who is mildly anxious, sitting in a chair, in no apparent distress. Trachea is midline. Lungs are very mildly coarse bilaterally, but with extremely good air movement and fairly clear. Heart with S1, S2, regular rate and rhythm. No S3, S4, murmurs, gallops, or rubs. Abdomen is soft, nontender, nondistended without hepatosplenomegaly or masses. Bowel sounds are active. There is no peripheral edema. No increased work of breathing and no cough. DISCHARGE INSTRUCTIONS/MEDICATIONS: The patient was discharged to home with information about assisted living. She is on a wait list at an assisted living facility, apparently; however, we will ask home health to see this patient. This patient will also be seen in our office for followup on 06/05/2016. Medications: 1. Prednisone 40 mg p.o. daily x2 days, then 20 mg p.o. daily x3 days, then 10 p.o. daily x4 days. 2. Albuterol nebulizers 2.5 mg inhaled t.i.d. 3. Lisinopril 40 mg p.o. daily. 4. Mirtazapine 30 mg p.o. at bedtime. 5. Oxycodone 5 mg p.o. daily p.r.n. severe pain. 6. Atorvastatin 40 mg p.o. at bedtime. 7. Metformin 1000 mg p.o. b.i.d. 8. Ceftin 500 mg p.o. b.i.d. x7 days. 9. Ellipta 1 puff inhaled daily. 10. Alprazolam 0.5 mg p.o. t.i.d. p.r.n. severe anxiety #20. A prescription was given to this patient, and she was advised to use this medication very sparingly.
--- NOTE | 2016-06-06 23:35 | ED MED RECONCILIATION SUMMARY ---
Patient: HONORIO ALBRIGHT Medication Reconciliation Report [facility] VisitID: [id number] [address] [place] [address] 75y, F Registration Date/Time: 06/01/2016 Weight: 56.2 kg Height/Length: 64 in. BMI: 21.3 ALLERGIES: Codeine, PCN, Sulfa Drugs The patient's Home Medications are listed below: THE FOLLOWING MEDICATIONS NEED TO BE RECONCILED: Albuterol Sulfate Inhalation Alprazolam 0.5mg.-1 3 times daily FLUoxetine HCl Oral 20 mg, daily Lisinopril 40mg 1 daily MetFORMIN HCl Oral 500 mg, 2x a day Mirtazapine Oral 30 mg, at bedtime O2 at 3L/min OxyCODONE HCl Oral PredniSONE Oral 40 mg, daily Spiriva HandiHaler Inhalation The source(s) of the original Home Medication information: Not obtained. The following Medications were given to the patient in the Emergency Department: SOLU-MEDROL [IVP] IVP 125 mg, administered: 06/01/2016 12:02:00 PM Duoneb [Neb Tx] Neb TX 1 unit dose, administered: 06/01/2016 12:11:00 PM Albuterol [Neb Tx] Neb TX 2 unit dose, administered: 06/01/2016 12:46:00 PM Albuterol [Neb Tx] Neb TX 2 unit dose, administered: 06/01/2016 1:50:00 PM Magnesium Sulfate [IVP] IVP 2 gm, administered: 06/01/2016 2:22:00 PM The following Medications were prescribed to the patient: None.
--- NOTE | 2016-06-06 23:35 | ED MAR SUMMARY ---
..... Medication Administration Record [facility] [address] [place] [address] Patient: HONORIO ALBRIGHT Visit ID: [id number] 75y, F Weight: 56.2 kg Height/Length: 64 in BMI: 21.3 ALLERGIES: Codeine, PCN, Sulfa Drugs Given 12:02 06/01/2016 Aidee Ramos R.N. Medication Administered: SOLU-MEDROL [IVP] (METHYLPREDNISOLONE SODIUM SUCC), Dose: 125 mg IVP over 2 minute(s), Site: #1 left hand. Medication Ordered: Solu-MEDROL IV 125 mg (NOW). Given 12:11 06/01/2016 Jose Eduardo Sorto, Medication Administered: DUONEB [NEB TX] (IPRATROPIUM-ALBUTEROL), Dose: 1 unit dose Nebulizer Neb TX. Medication Ordered: DuoNeb Neb Tx 1 unit dose (NOW). Given 12:46 06/01/2016 Jose Eduardo Sorto, Medication Administered: ALBUTEROL [NEB TX], Dose: 2 unit dose Nebulizer Neb TX. Medication Ordered: Albuterol Neb Tx 3 unit doses (now over 1 hour). Given 13:50 06/01/2016 Jose Eduardo Sorto, Medication Administered: ALBUTEROL [NEB TX], Dose: 2 unit dose Nebulizer Neb TX. Medication Ordered: Albuterol Neb Tx 2 unit doses (NOW). Given 14:22 06/01/2016 Aidee Ramos R.N. Medication Administered: MAGNESIUM SULFATE [IVP] (MAGNESIUM SULFATE IN D5W), Dose: 2 gm IVP over 15 minute(s), Site: #1 left hand. Medication Ordered: Magnesium Sulfate IV 2 gm/50mL (given over 15 minutes).
--- NOTE | 2016-06-06 23:35 | ED MAR SUMMARY ---
..... Medication Administration Record [facility] [address] [place] [address] Patient: HONORIO ALBRIGHT Visit ID: [id number] 75y, F Weight: 56.2 kg Height/Length: 64 in BMI: 21.3 ALLERGIES: Codeine, PCN, Sulfa Drugs Given 12:02 06/01/2016 Aidee Ramos R.N. Medication Administered: SOLU-MEDROL [IVP] (METHYLPREDNISOLONE SODIUM SUCC), Dose: 125 mg IVP over 2 minute(s), Site: #1 left hand. Medication Ordered: Solu-MEDROL IV 125 mg (NOW). Given 12:11 06/01/2016 Jose Eduardo Sorto, Medication Administered: DUONEB [NEB TX] (IPRATROPIUM-ALBUTEROL), Dose: 1 unit dose Nebulizer Neb TX. Medication Ordered: DuoNeb Neb Tx 1 unit dose (NOW). Given 12:46 06/01/2016 Jose Eduardo Sorto, Medication Administered: ALBUTEROL [NEB TX], Dose: 2 unit dose Nebulizer Neb TX. Medication Ordered: Albuterol Neb Tx 3 unit doses (now over 1 hour). Given 13:50 06/01/2016 Jose Eduardo Sorto, Medication Administered: ALBUTEROL [NEB TX], Dose: 2 unit dose Nebulizer Neb TX. Medication Ordered: Albuterol Neb Tx 2 unit doses (NOW). Given 14:22 06/01/2016 Aidee Ramos R.N. Medication Administered: MAGNESIUM SULFATE [IVP] (MAGNESIUM SULFATE IN D5W), Dose: 2 gm IVP over 15 minute(s), Site: #1 left hand. Medication Ordered: Magnesium Sulfate IV 2 gm/50mL (given over 15 minutes).
--- NOTE | 2016-06-06 23:35 | ED MED RECONCILIATION SUMMARY ---
Patient: HONORIO ALBRIGHT Medication Reconciliation Report [facility] VisitID: [id number] [address] [place] [address] 75y, F Registration Date/Time: 06/01/2016 Weight: 56.2 kg Height/Length: 64 in. BMI: 21.3 ALLERGIES: Codeine, PCN, Sulfa Drugs The patient's Home Medications are listed below: THE FOLLOWING MEDICATIONS NEED TO BE RECONCILED: Albuterol Sulfate Inhalation Alprazolam 0.5mg.-1 3 times daily FLUoxetine HCl Oral 20 mg, daily Lisinopril 40mg 1 daily MetFORMIN HCl Oral 500 mg, 2x a day Mirtazapine Oral 30 mg, at bedtime O2 at 3L/min OxyCODONE HCl Oral PredniSONE Oral 40 mg, daily Spiriva HandiHaler Inhalation The source(s) of the original Home Medication information: Not obtained. The following Medications were given to the patient in the Emergency Department: SOLU-MEDROL [IVP] IVP 125 mg, administered: 06/01/2016 12:02:00 PM Duoneb [Neb Tx] Neb TX 1 unit dose, administered: 06/01/2016 12:11:00 PM Albuterol [Neb Tx] Neb TX 2 unit dose, administered: 06/01/2016 12:46:00 PM Albuterol [Neb Tx] Neb TX 2 unit dose, administered: 06/01/2016 1:50:00 PM Magnesium Sulfate [IVP] IVP 2 gm, administered: 06/01/2016 2:22:00 PM The following Medications were prescribed to the patient: None.
== END 2016-06-04 18:45 | disposition home health service (06) ==
LOC: ED SRH 11:27 → TRANS SRH 15:38 → ACUTE2 SRH 15:38
PROVIDERS: ADMIT Student in an Organized Health Care Education/Training Program
DX: J44.1 Chronic obstructive pulmonary disease with (acute) exacerbation (principal); J34.89 Other specified disorders of nose and nasal sinuses; R09.02 Hypoxemia; I10 Essential (primary) hypertension; E11.9 Type 2 diabetes mellitus without complications; Z79.84 Long term (current) use of oral hypoglycemic drugs; F41.9 Anxiety disorder, unspecified
CPT/HCPCS: 29230; 29243; 29244; 29247; 29251; 90004; 90047; 90070; 90074; 90098; 90100; 90127; 90154; 90309; 91400; 91576; 92031; 92720; 93004; 95059

== ENCOUNTER 2016-07-03 14:45 | Outpatient (CLI) | payer MEDICARE ==
[~2016-07-03 14:45] MED LIST changes: +ALPRAZOLAM0.5 MG PO; +PATIENT'S OWN MEDICA IN
--- NOTE | 2016-07-03 15:29 | DIAGNOSTIC IMAGING REPORT ---
PROCEDURE: US VENOUS - RIGHT EXT INDICATION: RT LEG PAIN TECHNIQUE: Duplex sonography of the deep venous system in the right lower extremity was performed. Compression and augmentation techniques were used. COMPARISON: None. FINDINGS: Each interrogated segment of deep vein from the common femoral vein into the calf veins demonstrates normal compressibility, augmentation and/or color Doppler flow without filling defect. No evidence of significant soft-tissue edema, soft-tissue mass or cyst. IMPRESSION: 1. No deep venous thrombosis in the right lower extremity.
== END 2016-07-03 23:00 ==
LOC: US SRH 14:45
DX: M79.604 Pain in right leg (principal)